=== PATIENT | female | born 1975 | race Two or more races ===

== ENCOUNTER 2022-12-28 12:19 | Emergency (ER) | payer OTHER ==
[~2022-12-28] VITALS: Ht 152.4 cm; Wt 69.4 kg
[2022-12-28] MEDS ORDERED: FLUOXETINE HCL20 MG PO (13:02)
[2022-12-28] MEDS ORDERED: SUCRALFATE1 GM PO (13:03)
[2022-12-28] MEDS ORDERED: FAMOTIDINE40 MG PO (13:03)
[2022-12-28] MEDS ORDERED: FLUCONAZOLE150 MG PO (13:04)
[2022-12-28] MEDS ORDERED: METOCLOPRAMIDE10 MG PO (13:04)
[2022-12-28] MEDS ORDERED: CLONAZEPAM0.5 MG PO (13:04)
[2022-12-28] MEDS ORDERED: ELETRIPTAN HBR40 MG PO (13:09)
== END 2022-12-28 18:27 | disposition home or self-care (01) ==
LOC: ER 12:19
DX: I10 Essential (primary) hypertension (principal); Z88.8 Allergy status to other drugs, medicaments and biological substances; Z91.018 Allergy to other foods